=== PATIENT | female | born 1990 | race Caucasian/White ===

== ENCOUNTER 2025-03-10 14:45 | Outpatient (CLI) | payer OTHER, SELFPAY ==
--- NOTE | 2025-03-10 14:45 | CRLHL7_ITS ---
For Patients: As a result of the Century Cures Act, medical imaging exams and procedure reports are released immediately into your electronic medical record. You may view this report before your referring provider. If you have questions, please contact your health care provider. OB ULTRASOUND WILFREDO by US: 06/09/2025. GA: 27 w, 0 d. Single. INDICATION: Low fundal height. Growth. TECHNIQUE: Real time grayscale imaging of the fetus was performed. Transabdominal. CERVIX: Not visualized. POSITIONING: Vertex. AMNIOTIC FLUID: 13.1 SHANA. 6.1 cm. SDP (N: greater than 2 x 1 cm) PLACENTA: Technique: Transabdominal. PLACENTA POSITION: Anterior. DOPPLER: heart rate: 137 bpm. BIOMETRY: BPD: 7.3 cm. 29 w, 2 d, 95.6%. HC: 26.3 cm. 28 w, 4 d, 75.3%. AC: 23.7 cm. 28 w, 0 d, 72.1%. FL: 5.0 cm. 27 w, 0 d, 34.4%. FL/AC ratio: 21.2%. HC/AC ratio: 1.1. EFW: 1127g. Weight: 2 lbs., 8 oz. age by this US: 28 w, 2 d. WILFREDO by this US: 05/31/2025. Percentile by WILFREDO: 70.6%. IMPRESSION: 1. Sonographic gestational age 28 weeks 2 days and sonographic due date 05/31/2025. Sonographic age is 9 days ahead of the clinical age. 2. Estimated weight 71st percentile. Abdominal circumference 72nd percentile. 3. Amniotic fluid single deepest pocket 6.1 cm. SHANA 13.1 cm. Alberto Crump M.D. Diagnostic Radiologist [email or web address] ayon/Dictated by: Alberto Crump MD @ 03/10/2025 4:38:00 PM (Electronically Signed)
== END 2025-03-10 14:46 | disposition home or self-care (01) ==
LOC: US 14:49
PROVIDERS: PCP Family Medicine; Visit Provider Family Medicine
DX: O36.5920 Maternal care for other known or suspected poor fetal growth, second trimester, not applicable or unspecified (principal); Z3A.27 27 weeks gestation of pregnancy
CPT/HCPCS: 76815

== ENCOUNTER 2025-04-21 09:09 | Outpatient (CLI) | payer OTHER, SELFPAY ==
--- NOTE | 2025-04-21 09:15 | CRLHL7_ITS ---
For Patients: As a result of the Cures Act, medical imaging exams and procedure reports are released immediately into your electronic medical record. You may view this report before your referring provider. If you have questions, please contact your health care provider. RIGHT BREAST ULTRASOUND CLINICAL HISTORY: RIGHT breast lump. COMPARISON: Outside CT chest 04/18/2025. TECHNIQUE: Real-time ultrasound imaging of RIGHT breast with imaging documentation. FINDINGS: Targeted RIGHT breast ultrasound performed at 6 o`clock 2 cm from the nipple. Normal fibroglandular tissue is present. No suspicious mass or fibrocystic change. No abscess. IMPRESSION: No suspicious findings. RECOMMENDATIONS: Clinical follow-up. Age-appropriate screening mammography. Results and recommendations were discussed with the patient at the time of the exam. A lay language report of this examination will be provided to the patient. BI-RADS Category 2: Benign Dictated by Alberto Crump MD @ 04/21/2025 10:16:49 AM jj/Dictated by: Alberto Crump MD @ 04/21/2025 10:16:00 AM (Electronically Signed)
== END 2025-04-21 09:10 | disposition home or self-care (01) ==
LOC: US 09:10
PROVIDERS: PCP Family Medicine; Visit Provider Family Medicine
DX: N63.10 Unspecified lump in the right breast, unspecified quadrant (principal)
CPT/HCPCS: 76642